=== PATIENT | female | born 1990 | race Caucasian/White ===

== ENCOUNTER 2017-04-22 13:47 | Emergency (ER) | payer BC, OTHER ==
[~2017-04-22] VITALS: Ht 172.7 cm; Wt 74.8 kg
[~2017-04-22 13:47] MED LIST: ABILIFY 2 MG2 M1 PO; ADDERALL 20 MG20 MG PO; ALLEGRA ALLERG180 MG PO; APAP500 PO; BACTRIM DS TAB1 EACH PO; CIPROFLOXACIN PO; CLONAZEPAM 1 MG1 M1 PO; DEPAKOTE500 MG; DOXYCYCLINE 10100 MG PO; FLONASE 0.05%50 MCG NASAL; IBUPROFEN 800800 MG PO; LEXAPRO20 MG PO; NAPROSYN500 MG PO; NORCO 5-325 TA1 EACH PO; PAXIL40 MG PO; PRISTIQ100 MG PO; SUBOXONE 12 MG1 EACH PO; TOBREX5 ML OPHTHALMIC; ULTRAM 50MG TAB50 MG PO
[2017-04-22 14:42] LABS: URINE BILIRUBIN NEGATIVE (Negative); URINE BLOOD TRACE (Negative); URINE COLOR YELLOW; URINE GLUCOSE-RANDOM* NEGATIVE (Negative); URINE KETONES NEGATIVE (Negative); URINE NITRITE NEGATIVE (Negative); URINE PROTEIN (DIPSTICK) TRACE (Negative); URINE SPECIFIC GRAVITY >= 1.030 (1.003-1.035); URINE UROBILINOGEN 0.2 E.U./dl (0.2-1.0)
[2017-04-22 14:59] LABS: CASTS None Seen /LPF (None Seen); SQUAMOUS 0-3 Few /LPF (0-3)
[2017-04-22 15:00] LABS: BACTERIA >30 Many /HPF (None Seen); CRYSTALS None Seen /LPF (None Seen); URINE RBC 0-2 Rare /HPF (0-2); URINE WBC >25 Many /HPF (0-5)
[2017-04-22 15:36] LABS: AMP/METHAMP POSITIVE (Negative); BARBITURATES Negative (Negative); BENZODIAZEPINES Negative (Negative); COCAINE Negative (Negative); METHADONE Negative (Negative); OPIATES Negative (Negative); PCP Negative (Negative); THC Negative (Negative)
[2017-04-22 16:07] LABS: HEMATOCRIT 40.8 % (37.0-47.0); HEMOGLOBIN 14.2 gm/dL (12.0-15.0); MCH 31.5 pg (26.0-34.0); MCHC 34.8 g/dL (28.0-37.0); MCV 90.5 fL (80.0-100.0); RBC 4.51 mil/uL (4.20-5.00); RDW 12.3 % (10.5-14.5); WBC 7.8 thou/uL (4.0-11.0)
[2017-04-22 16:31] LABS: ALBUMIN 3.8 g/dL (3.4-5.0); ALKALINE PHOSPHATASE 63 U/L (46-116); DIRECT BILIRUBIN < 0.1 mg/dL (<0.1-0.3); NT-PRO BRAIN NAT PEPTIDE 27 pg/mL (<300); SGOT 16 U/L (15-37); SGPT 19 U/L (30-65); TOTAL BILIRUBIN 0.3 mg/dL (<0.1-1.0)
[2017-04-22 16:46] LABS: CALCIUM 8.9 mg/dL (8.5-10.1); POTASSIUM 3.9 mmol/L (3.5-5.1)
[2017-04-22] MEDS ORDERED: MACROBID 100 M100 M1 PO (16:58)
[2017-04-22 17:37] VITALS: BP 135/77
== END 2017-04-22 17:41 | disposition home or self-care (01) ==
LOC: ER 13:47
PROVIDERS: Emergency Medicine; Physician Assistant
DX: N39.0 Urinary tract infection, site not specified (principal); R60.0 Localized edema; F32.9 Major depressive disorder, single episode, unspecified; F10.99 Alcohol use, unspecified with unspecified alcohol-induced disorder; F41.9 Anxiety disorder, unspecified; Z98.890 Other specified postprocedural states; Z88.0 Allergy status to penicillin; Z87.891 Personal history of nicotine dependence

== ENCOUNTER 2018-05-30 15:09 | Emergency (ER) | payer BC, OTHER ==
[~2018-05-30] VITALS: Ht 157.5 cm; Wt 61.2 kg
[~2018-05-30 15:09] MED LIST changes: +LATUDA20 MG PO; +MACROBID 100 M100 M1 PO
[2018-05-30] MEDS ORDERED: PROZAC40 MG PO (15:29)
[2018-05-30 16:37] LABS: HEMATOCRIT 37.9 % (37.0-47.0); HEMOGLOBIN 13.3 gm/dL (12.0-15.0); MCV 88.5 fL (80.0-100.0); RBC 4.28 mil/uL (4.20-5.00); RDW 12.6 % (10.5-14.5); WBC 5.5 thou/uL (4.0-11.0)
[2018-05-30 16:42] LABS: CALCIUM 9.3 mg/dL (8.5-10.1); CREATININE 0.9 mg/dL (0.6-1.0); POTASSIUM 4.5 mmol/L (3.5-5.1)
[2018-05-30] MEDS ORDERED: REGLAN 5 MG TAB5 MG PO (17:59)
[2018-05-30 18:35] VITALS: BP 110/78
== END 2018-05-30 18:36 | disposition home or self-care (01) ==
LOC: ER 15:09
PROVIDERS: Emergency Medicine
DX: O20.0 Threatened abortion (principal); F32.9 Major depressive disorder, single episode, unspecified; F41.9 Anxiety disorder, unspecified; Z87.891 Personal history of nicotine dependence; Z88.0 Allergy status to penicillin; Z98.890 Other specified postprocedural states; Z3A.01 Less than 8 weeks gestation of pregnancy